=== PATIENT | female | born 1940 | race Caucasian/White ===

== ENCOUNTER 2019-07-15 06:40 | Inpatient (IN) | payer SELFPAY ==
[~2019-07-15] VITALS: Ht 160 cm; Wt 52.6 kg
--- NOTE | 2019-07-15 06:50 | NUR ---
assumed care of pt
[2019-07-15] MEDS ORDERED: SODIUM CHLORIDE 0.9% 1000ML 1,000 ML IV SCH (07:15)
[2019-07-15] MEDS ORDERED: SODIUM CHLORIDE 0.9% 100 ML ONE (07:18)
[2019-07-15] MEDS ORDERED: IOPAMIDOL 370 MG/ML 200 ML INFUS..BTL INJ ONE (07:18)
--- NOTE | 2019-07-15 08:10 | Diagnostic Imaging Report ---
EXAMINATION: CT of the abdomen and pelvis without contrast. TECHNIQUE: Spiral CT images of the abdomen and pelvis were performed from the lung bases to the lesser trochanters. No intravenous contrast was given per referring physician request. Coronal and sagittal reformatted images were obtained. COMPARISON: None. CLINICAL HISTORY:Right-sided abdominal pain DISCUSSION: ABSENCE OF INTRAVENOUS CONTRAST DECREASES SENSITIVITY FOR DETECTION OF FOCAL LESIONS AND VASCULAR PATHOLOGY. ABDOMEN/PELVIS: LOWER THORAX: 4 mm noncalcified nodule lateral aspect of the left lower lobe series 2 image 10. 4 mm juxtapleural nodule right middle lobe series 2 image 8. HEPATOBILIARY:Innumerable scattered subcentimeter hypoattenuating lesions throughout the liver, too small to further characterize but likely represent simple cysts. No intrahepatic biliary ductal dilatation. No radiopaque gallstones. SPLEEN: No splenomegaly. PANCREAS: No focal masses or ductal dilatation. ADRENALS: No adrenal nodules. KIDNEYS/URETERS: 4 mm nonobstructing left upper pole renal calculus. Punctate nonobstructing right lower pole renal calculus. No hydronephrosis. PELVIC ORGANS/BLADDER: Urinary bladder is poorly distended and poorly evaluated. PERITONEUM/RETROPERITONEUM: Trace perihepatic ascites, average attenuation 0-5 Hounsfield units. LYMPH NODES: No intra-abdominal,retroperitoneal, pelvic or inguinal lymphadenopathy. VESSELS: Limited evaluation without intravenous contrast. Atherosclerotic calcification of the abdominal aorta and iliac arterial systems without aneurysmal dilatation. GI TRACT: The large bowel shows no distention or wall thickening, though is largely collapsed and suboptimally evaluated. There are multiple mildly dilated loops of small bowel (approximately 3.5 cm in diameter), with a short segment of terminal ileum within a right femoral hernia. BONES AND SOFT TISSUES: The bones are diffusely osteopenic. Multilevel degenerative disc changes and facet arthropathy of the lumbar spine. No focal soft tissue abnormalities. IMPRESSION: Small bowel obstruction related to a right femoral hernia containing a loop of terminal ileum. Small amount of reactive perihepatic ascites. No pneumoperitoneum. Bilateral nonobstructing renal calculi. Atherosclerotic vascular disease. 4 mm right and left lower lobe pulmonary nodules may be assessed for stability by CT scan of the chest without contrast in one year if the patient is at high risk of malignancy. Findings were discussed by telephone with Dr. Melendez of the [facility] emergency center at 8:05 AM 07/15/2019. Signed by: Dr. Yandel Vargas M.D. on 07/15/2019 8:07 AM
[2019-07-15] MEDS ORDERED: CEFTRIAXONE SOD 1 GM VIAL IV ONE (08:30)
[2019-07-15] MEDS ORDERED: CEFTRIAXONE SOD 1 GM/NS 50 ML 50 ML IV ONE (08:36)
--- NOTE | 2019-07-15 10:10 | NUR ---
[facility] to transport pt to surgery for surgery of strangulated hernia
--- NOTE | 2019-07-15 10:10 | NUR ---
Report to Tiff in surgical services.
--- NOTE | 2019-07-15 10:20 | Pre Op History & Physical ---
CHIEF COMPLAINT: Right groin mass. HISTORY OF PRESENT ILLNESS: The patient is a pleasant 79-year-old female who this Friday felt ill. She thought it was the flu. She vomited once. The patient then persisted with some of these generalized symptoms until this morning when she became constipated and noticed also a lump in her right groin, which was tender. The patient then came to the emergency room at [facility]. She was then worked up and had a CT scan of the abdomen and pelvis that revealed an incarcerated right femoral hernia with a segment of distal small bowel. This also corresponded to her physical examination. PAST MEDICAL HISTORY: Unremarkable. PAST SURGICAL HISTORY: She had appendectomy years ago through a midline incision. Otherwise, no other surgeries. MEDICATIONS: She does not take any medicines. SOCIAL HISTORY: She does not smoke. She does not drink. She works at [employer]. FAMILY HISTORY: Noncontributory. REVIEW OF SYSTEMS: Significant only for what has been stated. This patient has never been sick in the past, except for the appendectomy many years ago. PHYSICAL EXAMINATION: GENERAL: A pleasant, anxious 79-year-old female, who is at this point in no acute distress. HEAD, EYES, EARS, NOSE, AND THROAT: No acute process. LUNGS: Supple. No carotid bruits. HEART: Regular sinus rhythm. No murmurs. LUNGS: Clear. ABDOMEN: Some guarding. No rebound. The right groin, there is a mass with some slight erythema of the overlying skin consistent with CT scan findings. Examination of the flanks reveals no tenderness. EXTREMITIES: No clubbing, cyanosis, or edema. NEUROLOGICAL: Nonfocal. ADMISSION LABS: Electrolytes and CBC were normal. Admission EKG did not reveal any acute process as per the emergency room physician. The CT scan has been discussed. ASSESSMENT: Strangulated right femoral hernia. PLAN: Plan is to proceed with emergent exploration of right groin, possible bowel resection, and possible laparotomy. The procedure, indication, benefits, and risks have been discussed with the patient. She is aware of the need for surgery and potential complications. She understands the emergency nature of the situation. I have called her son, who lives in [place] and left a message. The emergency room staff had contacted the patient's employer as per her request. MD ELOY Nick/MAYO /[id number] MTDEllis
[2019-07-15] MEDS ORDERED: HYDROGEN PEROXIDE 120 ML BTL ONE (12:28)
[2019-07-15] MEDS ORDERED: HYDROMORPHONE 2MG/ML 2 MG/ML ML ONE (13:38)
--- NOTE | 2019-07-15 14:06 | Operative Report ---
DATE OF PROCEDURE: 07/15/2019 SURGEON: Ambrosio Miller MD PREOPERATIVE DIAGNOSIS: Strangulated right femoral hernia. POSTOPERATIVE DIAGNOSIS: Strangulated right femoral hernia. PROCEDURES PERFORMED: Exploration of the right groin with reduction of necrotic small bowel and small bowel resection with primary [id number] functional end-to-end anastomosis, stapled, and Emory ligament repair, modified strangulated right inguinal hernia. INTRAOPERATIVE FINDINGS: The patient is a 79-year-old female, who has been having pain since Friday. She initially developed nausea and vomited and felt ill. She felt this was secondary to a viral illness. However, today she noticed a lump in the right groin, which scared her. The pain got worse and then she was evaluated in the outlying emergency room, was found to have incarcerated right femoral hernia. Intraoperative findings were strangulated right femoral hernia, Olson's type. [id number] functional end-to-end anastomosis was made and a modified Emory ligament repair was then performed. No mesh was placed due to the fact that we were dealing with gangrenous necrotic bowel with a contaminated field. Preoperatively, I attempted to contact her son and I could not find him, had left a message. DESCRIPTION OF PROCEDURE: With the patient lying on the operative table in the supine position after administration of general anesthesia, she was prepped and draped for repair of strangulated right inguinal hernia. An incision was made across the palpable mass in the right groin and deepened through the skin, subcutaneous tissue until the hernia was identified. We then dissected the hernia from the soft tissues. It became obvious that it was strangulated and not reducible. At this point, we then incised the transversalis fascia. At this point, we incised the external oblique aponeurosis. We entered the inguinal canal floor. We then at this point released the hernia from its incarceration, which require transecting the external inguinal ring, where the hernia also appeared to have been present. After we did that, then we had a knuckle of small bowel that was gangrenous within the hernia sac, which was excised. At this point, we went ahead and transected the small bowel proximal and distal to the knuckle of bowel with the ADINA #75 stapler and then, we performed a mehi-be-xwss functional end-to-end anastomosis by firing the ADINA #75 staplers that we had cut the corners of the bowel for the anastomosis. There was no bleeding. The bowel was totally viable at the two anastomosed ends and then we closed the defect in the bowel by firing the TA-60 stapler. We then reinforced the suture staple line with 3-0 silk interrupted and then closed the mesenteric defect with 2-0 Vicryl. At this point, we copiously irrigated the operative field. We irrigated the abdominal cavity within the area of the hernia and then, we performed the modified Emory ligament repair by then first relaxing the rectus sheath due to the fact that this was a large defect and it was under tension and we could not put a mesh, we rounded the conjoint tendon after relaxing the rectus sheath to the Emory ligament. The point where we saw the femoral vessel, we placed a transition stitch, incorporated part of the femoral vein sheath and then continued the repair at a higher level, suturing the rectus sheath to the ilioinguinal ligament. We then rounded the suture line back to itself at the level of the pubic tubercle. We irrigated the wound. We then ran a second layer, which incorporated the previously placed double suture line by taking basically the external oblique aponeurosis and running that toward the inguinal ligament. At this point, we irrigated again and then we closed the soft tissues in two layers using the deep Ran's fascia to itself to create another layer and then the subcuticular plane was drawn using interrupted 2-0 Vicryl. The skin was then closed with 3-0 silk. Sterile dressing was applied. The patient tolerated the procedure well, was taken to recovery room in stable condition. MD ELOY Nick/MAYO /[id number]
[2019-07-15] MEDS ORDERED: HYDRALAZINE HCL 20 MG/ML VIAL ONE ×2 (14:12→17:59)
[2019-07-15] MEDS ORDERED: HYDROMORPHONE 1MG/1ML INJ IV PRN (14:15)
[2019-07-15] MEDS ORDERED: FENTANYL CITRATE/PF 100MCG/2 ML INJ ONE ×2 (14:40→18:46)
--- OUTSIDE RECORDS SUMMARY | 2019-07-15 15:34 | XMS REPORT ---
Author [facility] Address Unknown Phone Unavailable Care Team Providers Care Asphalt Worker Name Role Phone MARIAJOSE MELENDEZ Unavailable Unavailable Problems This patient has no known problems. Allergies, Adverse Reactions, Alerts This patient has no known allergies or adverse reactions. Medications This patient has no known medications. Results Test Description Test Time Test Comments Text Results Atomic Results Result Comments CT ABD/PEL WO CONTRAST-HOPD 2019-07-15 07:54:[address] [address] Patient Name: RENETTA CONDON MR #: [id number] : 1940 Age/Sex: 79/F Req #: [id number] [facility] Physician: Ordered by: MARIAJOSE MELENDEZ MD Report #: [id number] Location: [facility] Room/Bed: Procedure: HOPD/CT ABD/PEL WO CONTRAST-HOPD Exam Date: 07/15/19 Exam Time: 0751 REPORT STATUS: Signed EXAMINATION: CT of the abdomen and pelvis without contrast. TECHNIQUE: Spiral CT images of the abdomen and pelvis were performed from the lung bases to the lesser trochanters. No intravenous contrast was given per referring physician request. Coronal and sagittal reformatted images were obtained. COMPARISON: None. CLINICAL HISTORY:Right-sided abdominal pain DISCUSSION: ABSENCE OF INTRAVENOUS CONTRAST DECREASES SENSITIVITY FOR DETECTION OF FOCAL LESIONS AND VASCULAR PATHOLOGY. ABDOMEN/PELVIS: LOWER THORAX: 4 mm noncalcified nodule lateral aspect of the left lower lobe series 2 image 10. 4 mm juxtapleural nodule right middle lobe series 2 image 8. HEPATOBILIARY:Innumerable scattered subcentimeter hypoattenuating lesions throughout the liver, too small to further characterize but likely represent simple cysts. No intrahepatic biliary ductal dilatation. No radiopaque gallstones. SPLEEN: No splenomegaly. PANCREAS: No focal masses or ductal dilatation. ADRENALS: No adrenal nodules. KIDNEYS/URETERS: 4 mm nonobstructing left upper pole renal calculus. Punctate nonobstructing right lower pole renal calculus. No hydronephrosis. PELVIC ORGANS/BLADDER: Urinary bladder is poorly distended and poorly evaluated. PERITONEUM/RETROPERITONEUM: Trace perihepatic ascites, average attenuation 0-5 Hounsfield units. LYMPH NODES: No intra-abdominal,retroperitoneal, pelvic or inguinal lymphadenopathy. VESSELS: Limited evaluation without intravenous contrast. Atherosclerotic calcification of the abdominal aorta and iliac arterial systems without aneury smal dilatation. GI TRACT: The large bowel shows no distention or wall thickening, though is largely collapsed and suboptimally evaluated. There are multiple mildly dilated loops of small bowel (approximately 3.5 cm in diameter), with a short segment of terminal ileum within a right femoral hernia. BONES AND SOFT TISSUES: The bones are diffusely osteopenic. Multilevel degenerative disc changes and facet arthropathy of the lumbar spine. No focal soft tissue abnormalities. IMPRESSION: Small bowel obstruction related to a right femoral hernia containing a loop of terminal ileum. Small amount of reactive perihepatic ascites. No pneumoperitoneum. Bilateral nonobstructing renal calculi. Atherosclerotic vascular disease. 4 mm right and left lower lobe pulmonary nodules may be assessed for stability by CT scan of the chest without contrast in one year if the patient is at high risk of malignancy. Findings were discussed by telephone with Dr. Melendez of the [facility] emergency center at 8:05 AM 07/15/2019. Signed by: Dr. Jocelin Roblero M.D. on 07/15/2019 8:07 AM Dictated By: JOCELIN ROBLERO MD 6 Transcribed By: NIGEL on 07/15/19806 COPY TO: MARIAJOSE MELENDEZ MD
[2019-07-15] MEDS ORDERED: MORPHINE SULFATE INJ 4 MG/ML INJ 1ML ONE (15:35)
--- NOTE | 2019-07-15 16:21 | NUR ---
PT TO THE FLOOR AT THIS TIME. PT'S VITALS WNL. PT RESTING. PT DENIES NEEDS AT THIS TIME.
[2019-07-15 16:34] VITALS: BP 151/69
[2019-07-15] MEDS: PANTOPRAZOLE 40 MG 10ML VIAL IV SCH (16:59)
[2019-07-15] MEDS: SODIUM CHLORIDE 0.9% 250ML IRRIG IR SCH ×3 (16:59→22:15)
[2019-07-15] MEDS: DEXTROSE 5%/LACTATED RINGERS 1,000 ML IV SCH (16:59)
[2019-07-15] MEDS ORDERED: ROCURONIUM BROMIDE 10 MG/ML 5ML VIAL ONE (17:59)
[2019-07-15] MEDS ORDERED: SEVOFLURANE INHAL SOLN 250 ML PEN BTL ONE (17:59)
[2019-07-15] MEDS ORDERED: NEOSTIGMINE 5 MG/5ML SYR ONE (17:59)
[2019-07-15] MEDS ORDERED: LIDOCAINE HCL 2% LOCAL INJ 5 ML SDV VIAL INJ ONE (17:59)
[2019-07-15] MEDS ORDERED: DEXAMETHASONE SOD PHOS INJ 4 MG/ML VIAL ONE (17:59)
[2019-07-15] MEDS ORDERED: ONDANSETRON HCL INJ 2MG/ML 2ML 2 MG/ML VIAL ONE (17:59)
[2019-07-15] MEDS ORDERED: PROPOFOL IV EMULSION 10 MG/ML 20 ML VIAL ONE (17:59)
[2019-07-15] MEDS ORDERED: GLYCOPYRROLATE INJ 1MG/ 5 ML SYR ONE (17:59)
[2019-07-15] MEDS: CEFOXITIN 1GM/ D5W 50ML 50 ML IV SCH (18:39)
[2019-07-15] MEDS ORDERED: MIDAZOLAM HCL 2 MG/2 ML VIAL ONE (18:46)
[2019-07-15 19:26] VITALS: BP 151/69
[2019-07-15] MEDS ORDERED: [UNRECOGNIZED DRUG - REMARK] (19:40)
[2019-07-15 20:19] VITALS: BP 176/81
[2019-07-15 20:35] VITALS: BP 176/81
[2019-07-15] MEDS: HYDROMORPHONE 1MG/1ML INJ IV PRN (21:54)
[2019-07-16] VITALS (8 sets, daily range): BP systolic 137–182; BP diastolic 69–87
[2019-07-16] MEDS: DEXTROSE 5%/LACTATED RINGERS 1,000 ML IV SCH ×3 (00:02→20:02)
[2019-07-16] MEDS: CEFOXITIN 1GM/ D5W 50ML 50 ML IV SCH ×5 (00:08→23:14)
[2019-07-16] MEDS: HYDROMORPHONE 1MG/1ML INJ IV PRN ×5 (01:15→20:25)
[2019-07-16] MEDS: SODIUM CHLORIDE 0.9% 250ML IRRIG IR SCH ×6 (02:15→20:25)
--- NOTE | 2019-07-16 04:04 | NUR ---
ALTERNATING PRESSURE APPLIED TO MATTRESS
[2019-07-16] MEDS: ONDANSETRON HCL INJ 2MG/ML 2ML 2 MG/ML VIAL IV PRN ×4 (06:00→20:25)
[2019-07-16 06:34] LABS: BASOPHILS % 0.2 % (0.0-1.0); EOSINOPHILS # (AUTO) 0.1 (0.0-0.4); EOSINOPHILS % 1.9 % (0.0-6.0); HEMATOCRIT 37.2 % (34.2-44.1); HEMOGLOBIN 11.9 g/dL (12.0-16.0); LYMPHOCYTES # (AUTO) 0.3 (1.0-3.2); LYMPHOCYTES % 4.7 % (18.0-39.1); MEAN CORPUSCULAR VOLUME 84.4 fL (81-99); MONOCYTES # (AUTO) 0.6 (0.2-0.8); MONOCYTES % 9.5 % (4.4-11.3); NEUTROPHILS # (AUTO) 5.4 (2.1-6.9); NEUTROPHILS % 83.4 % (38.7-80.0); PLATELET COUNT 182 x10e3/uL (140-360); RED BLOOD COUNT 4.41 x10e6/uL (3.6-5.1); RED CELL DISTRIBUTION WIDTH 14.4 % (11.7-14.4)
--- NOTE | 2019-07-16 07:00 | NUR ---
BEDSIDE SHIFT REPORT RECEIVED FROM [facility] [employer] [facility] RN. PT DENIES NEEDS AT THIS TIME.
[2019-07-16 07:02] LABS: ANION GAP 13.3 mmol/L (8-16); CALCIUM 8.8 mg/dL (8.4-10.2); CREATININE, SERUM 1.14 mg/dL (0.57-1.11); POTASSIUM 3.3 mmol/L (3.5-5.1)
[2019-07-16 09:48] LABS: EOSINOPHILS % (MANUAL) 1 % (0-7); LYMPHOCYTES % (MANUAL) 4 % (19-48); MONOCYTES % (MANUAL) 11 % (3.4-9.0); NEUTROPHILS % (MANUAL) 84 % (40-74); PLATELET ESTIMATE MODERATELY DECREASED; PLATELET MORPHOLOGY COMMENT FEW LARGE
[2019-07-16 09:49] LABS: RBC MORPHOLOGY COMMENT NORMAL
[2019-07-16] MEDS ORDERED: POTASSIUM CHLORIDE 20MEQ/100ML 100 ML IV ONE (10:30)
--- NOTE | 2019-07-16 12:53 | Progress Note ---
DATE: SUBJECTIVE: The patient complains mainly of pain in the left arm. She has no complaints of abdominal pain at this time or nausea. OBJECTIVE: VITAL SIGNS: Temperature is 99.7, blood pressure 176/81, pulse 87, respirations 16, and oxygen saturation 96%. GENERAL: She is awake and alert and appears tired. ABDOMEN: Reveals a flat abdomen, some bowel sounds. The dressing is dry. EXTREMITIES: Reveal no clubbing, cyanosis, or edema. LABORATORY DATA: Her electrolytes are normal except for potassium of 3.3. White count is 6.4, hematocrit 37, and platelets 182. Intake and output reveals 800 cc of urine, 100 cc of nasogastric drainage. The intake is 900, which equals the output. ASSESSMENT: Status post repair of strangulated right groin hernia with small bowel resection and stapled anastomosis. At this point, the patient is hemodynamically stable. PLAN: The plan is to continue present care. Hopefully, we can remove the NG tube tomorrow as well as the Mckeon catheter and start mobilizing the patient. MD ELOY Nick/MAYO /[id number]
[2019-07-16] MEDS: PANTOPRAZOLE 40 MG 10ML VIAL IV SCH (15:08)
[2019-07-17] VITALS (8 sets, daily range): BP systolic 174–189; BP diastolic 76–100
[2019-07-17] MEDS: HYDROMORPHONE 1MG/1ML INJ IV PRN ×3 (00:10→23:00)
[2019-07-17] MEDS: ONDANSETRON HCL INJ 2MG/ML 2ML 2 MG/ML VIAL IV PRN ×3 (00:10→22:54)
[2019-07-17] MEDS: SODIUM CHLORIDE 0.9% 250ML IRRIG IR SCH ×3 (02:56→10:00)
[2019-07-17] MEDS: DEXTROSE 5%/LACTATED RINGERS 1,000 ML IV SCH ×2 (04:10→19:10)
[2019-07-17] MEDS: CEFOXITIN 1GM/ D5W 50ML 50 ML IV SCH ×4 (05:35→23:18)
[2019-07-17 06:25] LABS: BASOPHILS % 0.2 % (0.0-1.0); EOSINOPHILS % 0.2 % (0.0-6.0); HEMATOCRIT 35.9 % (34.2-44.1); HEMOGLOBIN 11.3 g/dL (12.0-16.0); LYMPHOCYTES # (AUTO) 0.4 (1.0-3.2); MEAN CORPUSCULAR HEMOGLOBIN 27.2 pg (28-32); MEAN CORPUSCULAR HGB CONC 31.5 g/dL (31-35); MEAN CORPUSCULAR VOLUME 86.3 fL (81-99); MONOCYTES # (AUTO) 0.6 (0.2-0.8); MONOCYTES % 9.6 % (4.4-11.3); NEUTROPHILS # (AUTO) 5.2 (2.1-6.9); NEUTROPHILS % 83.7 % (38.7-80.0); PLATELET COUNT 175 x10e3/uL (140-360); RED BLOOD COUNT 4.16 x10e6/uL (3.6-5.1); RED CELL DISTRIBUTION WIDTH 14.4 % (11.7-14.4)
[2019-07-17 06:44] LABS: ANION GAP 11.1 mmol/L (8-16); CALCIUM 9.1 mg/dL (8.4-10.2); CREATININE, SERUM 0.91 mg/dL (0.57-1.11); POTASSIUM 4.1 mmol/L (3.5-5.1)
[2019-07-17 07:04] LABS: BAND NEUTROPHILS % (MANUAL) 1 %; LYMPHOCYTES % (MANUAL) 8 % (19-48); MONOCYTES % (MANUAL) 6 % (3.4-9.0); NEUTROPHILS % (MANUAL) 84 % (40-74)
[2019-07-17 07:05] LABS: PLATELET ESTIMATE ADEQUATE; PLATELET MORPHOLOGY COMMENT NORMAL; RBC MORPHOLOGY COMMENT NORMAL
--- NOTE | 2019-07-17 10:00 | NUR ---
PT REPOSITIONED TO LEFT SIDE, NGT IRRIGATED PER MD ORDER, PT TOLERATED WELL, PT NOW TALKING ON PHONE, CALL LIGHT WITHIN REACH
--- NOTE | 2019-07-17 11:23 | NUR ---
MD Chris JAIME INTO SEE PT, DISCUSSED POC
[2019-07-17] MEDS: ACETAMINOPHEN 1000 MG/100 ML IV PRN ×2 (12:40→21:22)
--- NOTE | 2019-07-17 12:45 | NUR ---
REMOVED JAIN PER MD ORDER, 400ML YELLOW URINE DRAINED, NGT REMOVED PER MD ORDER, PT TOLERATED WELL, CALL LIGHT WITHIN REACH
--- NOTE | 2019-07-17 13:15 | NUR ---
MD Chris JAIME IN HOSPITAL, MADE AWARE OF ELEVATED BP, WILL RECHECK INSTRUCTED AND NOTIFY MD JAIME IF STILL ELEVATED
--- NOTE | 2019-07-17 15:00 | NUR ---
SITTING IN BS CHAIR, CALL LIGHT WITHIN REACH
--- NOTE | 2019-07-17 15:16 | NUR ---
TELEPHONED MD Chris JAIME TO MAKE AWARE THAT PT BP IS STILL ELEVATED, 187/89, 91 BPM AT 1427, AFTER PHYSICAL THERAPY BP ELEVATED TO 210/95, HR 82 BPM, CURRENTLY 185/88, HR 79BPM, ORDERS NOTED
[2019-07-17] MEDS: PANTOPRAZOLE 40 MG 10ML VIAL IV SCH (15:33)
--- NOTE | 2019-07-17 16:16 | NUR ---
PT ASSISTED BACK TO BED AFTER SITTING IN BS CHAIR, CALL LIGHT WITHIN REACH, SPOKE WITH MD HANDLEY, AWARE OF CONSULT
--- NOTE | 2019-07-17 17:15 | NUR ---
SPOKE WITH PT PER REQUEST, PT WORRIED ABOUT BILL, SHE STATES IS SUPPOSED TO BE ON HER SONS JOSE BUT WAS INFORMED SHE IS NOT. SHE IS AFRAID SHE WILL NOT BE TREATED. I EDUCATED HER THAT [facility] WOULD BRING HER A DANIAL APPLICATION AND ALSO PRICE FROM [facility] WOULD COME SEE HER ON FRIDAY TO SEE IF SHE WOULD BE ABLE TO ASSIST PT IN ANY WAY, GAVE PACKET OF RESOURCES FOR COMMUNITY TO FOLLOW UP UPON DISCHARGE. LET HER KNOW SHE WILL BE TREATED SAME AT THIS HOSPITAL REGARDLESS OF BENEFITS AND WILL DO WHAT WE CAN TO ASSIST HER.
--- NOTE | 2019-07-17 17:19 | NUR ---
CALLED SON TO GET CLARIFICATION ABOUT BEING ON HIS BENEFITS, ROBBY [phone] LEFT MESSAGE TO RETURN CALL.
[2019-07-17] MEDS: AMLODIPINE BESYLATE 10 MG TAB PO SCH (17:30)
--- NOTE | 2019-07-17 18:11 | NUR ---
PER PCT PT VOIDED , MD HANDLEY INTO SEE PT, DISCUSSED POC
[2019-07-17] MEDS: HYDRALAZINE HCL 20 MG/ML VIAL IV SCH ×2 (18:45→23:18)
--- NOTE | 2019-07-17 19:02 | NUR ---
WALKING ROUNDS PERFORMED, RECEIVED PT LAYING SEMI FOWLERS IN BED, AAOX3, RR EVEN AND NON-LABORED, ON ROOM AIR. NO S/SX OF DISTRESS NOTED. Addendum: 07/17/19 at 1948 by Leslie Orlando RN LEFT PT LAYING SEMI FOWLERS IN BED, BED IN LOW LOCKED POSITION, SIDE RAILS UPX2, CALL LIGHT AND PHONE WITHIN REACH.
[2019-07-18] VITALS (8 sets, daily range): BP systolic 132–209; BP diastolic 62–96
--- NOTE | 2019-07-18 00:30 | Consultation ---
DATE OF CONSULTATION: HISTORY OF PRESENT ILLNESS: This is a 79-year-old woman, who underwent an operation for necrotic small bowel within the inguinal hernia. Postoperatively, she became profoundly hypertensive. She is completely asymptomatic from a cardiovascular standpoint. Denies any chest pain, shortness of breath, palpitations, near syncope, orthopnea, PND, or prior cardiovascular events. The patient's blood pressure was ranging from 170s to 180s and she is under mild distress secondary to surgical site pain. REVIEW OF SYSTEMS: A 12-point review of system was conducted, is negative otherwise as stated above in the HPI. PAST MEDICAL HISTORY: No significant medical history. PAST SURGICAL HISTORY: Appendectomy and hernia repair. ALLERGIES: NO KNOWN DRUG ALLERGIES. MEDICATIONS: See medications reconciliation form. SOCIAL HISTORY: No illicit drug, alcohol, or tobacco use. PHYSICAL EXAMINATION: VITAL SIGNS: Temperature is 96, heart rate is 87, respirations are 18, blood pressure is 177/84, and oxygen saturation 95% on room air. GENERAL: Well-appearing elderly woman, lying comfortably in bed. HEENT: Head is normocephalic and atraumatic. Eyes, the extraocular muscles are intact. Conjunctivae are clear. NECK: No JVD. No bruits. CARDIOVASCULAR: Regular rate and rhythm. LUNGS: Clear to auscultation bilaterally. No wheezing or rales. ABDOMEN: Soft, nontender, and nondistended. EXTREMITIES: No clubbing, cyanosis, or edema. VASCULAR: 2+ pulses. SKIN: Warm, dry, and intact. NEUROLOGIC: No focal deficits noted. Cranial nerves grossly intact. PSYCHIATRIC: Normal mood and affect. LABORATORY DATA: Reviewed. Creatinine was mildly elevated yesterday at 1.14 and today is 0.9. IMPRESSION: 1. Hypertension. 2. Strangulated bowel, status post reduction. 3. Hernia repair. RECOMMENDATIONS: The patient is currently asymptomatic from a cardiovascular standpoint. We will start amlodipine for blood pressure control. If needed, can start an angiotensin receptor carlos a. No need for additional cardiac testing. We will continue to follow along with you. Nathaniel Wylie DO BM/MODL /[id number]
[2019-07-18] MEDS: DEXTROSE 5%/LACTATED RINGERS 1,000 ML IV SCH ×2 (03:06→21:53)
[2019-07-18] MEDS: HYDRALAZINE HCL 20 MG/ML VIAL IV SCH ×3 (05:56→16:29)
[2019-07-18] MEDS: CEFOXITIN 1GM/ D5W 50ML 50 ML IV SCH ×2 (05:56→12:35)
[2019-07-18 06:47] LABS: BASOPHILS % 0.4 % (0.0-1.0); EOSINOPHILS % 0.3 % (0.0-6.0); HEMATOCRIT 35.9 % (34.2-44.1); HEMOGLOBIN 11.8 g/dL (12.0-16.0); LYMPHOCYTES # (AUTO) 0.5 (1.0-3.2); LYMPHOCYTES % 6.2 % (18.0-39.1); MEAN CORPUSCULAR HEMOGLOBIN 27.6 pg (28-32); MEAN CORPUSCULAR HGB CONC 32.9 g/dL (31-35); MEAN CORPUSCULAR VOLUME 83.9 fL (81-99); MONOCYTES # (AUTO) 0.5 (0.2-0.8); MONOCYTES % 6.4 % (4.4-11.3); NEUTROPHILS # (AUTO) 6.2 (2.1-6.9); NEUTROPHILS % 86.3 % (38.7-80.0); PLATELET COUNT 171 x10e3/uL (140-360); RED BLOOD COUNT 4.28 x10e6/uL (3.6-5.1); RED CELL DISTRIBUTION WIDTH 14.2 % (11.7-14.4)
[2019-07-18 07:07] LABS: ANION GAP 12.4 mmol/L (8-16); BLOOD UREA NITROGEN 19 mg/dL (7-26); BUN/CREATININE RATIO 23 (6-25); CARBON DIOXIDE 26 mmol/L (22-29); CHLORIDE 106 mmol/L (98-107); CREATININE, SERUM 0.83 mg/dL (0.57-1.11); EST GLOMERULAR FILTRATION RATE > 60 ML/MIN (60-); GLUCOSE 111 mg/dL (74-118); POTASSIUM 3.4 mmol/L (3.5-5.1); SODIUM 141 mmol/L (136-145)
[2019-07-18] MEDS: AMLODIPINE BESYLATE 10 MG TAB PO SCH (08:45)
[2019-07-18] MEDS: ONDANSETRON HCL INJ 2MG/ML 2ML 2 MG/ML VIAL IV PRN ×2 (09:08→14:40)
[2019-07-18] MEDS: ACETAMINOPHEN 1000 MG/100 ML IV PRN (09:10)
--- NOTE | 2019-07-18 09:12 | NUR ---
RECHECKED TEMP AFTER REMOVING 2 BLANKETS, PT TEMP NOW 96.7F ORAL, PT C/O "BACK AND STOMACH" PAIN NOW, C/O NAUSEA, MEDICATED PER MD ORDER FOR NAUSEA AND PAIN,
--- NOTE | 2019-07-18 09:35 | NUR ---
PT RESTING WITH EYES CLOSED, RR EVEN AND NONLABORED, CALL LIGHT WITHIN REACH
--- NOTE | 2019-07-18 10:43 | NUR ---
MD Chris JAIME INTO SEE PT, PT NOW COMPLAINING OF "BURNING IN HER STOMACH, AND FEEL SICK", MD DISCUSSED POC
[2019-07-18] MEDS ORDERED: BISACODYL 10 MG SUPP PR ONE ×2 (11:00→23:00)
--- NOTE | 2019-07-18 12:00 | NUR ---
PT REFUSING SUPPOSITORY AT THIS TIME, STATES WILL TAKE "LATER", WITH STANDBY ASSIST, OOB TO BS COMMODE, PCT AT SIDE
--- NOTE | 2019-07-18 12:53 | Progress Note ---
DATE: Cardiology Progress Note SUBJECTIVE: The patient reports nausea and mild pain at the groin site. OBJECTIVE: VITAL SIGNS: Temperature is 96.7, heart rate is 84, respirations are 19, blood pressure is 160/72, and oxygen saturation is 96% on room air. GENERAL: Well-appearing elderly woman, lying comfortably in bed. CARDIOVASCULAR: Regular rate and rhythm. LUNGS: Clear to auscultation. ABDOMEN: Soft, nontender, nondistended. EXTREMITIES: No clubbing, cyanosis, or edema. VASCULAR: 2+ pulses. LABORATORY DATA: Reviewed. Hemoglobin 11.8, creatinine 0.83. IMPRESSION: 1. Hypertension. 2. Strangulated bowel, status post reduction. 3. Hernia repair. 4. Nausea. RECOMMENDATION: She remains asymptomatic from a cardiovascular standpoint. She cannot tolerate hydralazine due to nausea. Clear liquids have been started and we will continue amlodipine orally for blood pressure control. If needed, can start angiotensin receptor carlos a as her creatinine has normalized. Nathaniel Wylie DO BM/MODL /[id number]
[2019-07-18] MEDS: PANTOPRAZOLE 40 MG 10ML VIAL IV SCH (13:57)
--- NOTE | 2019-07-18 14:12 | NUR ---
PT ENCOURAGED TO GET OOB , PT VERBALIZED UNDERSTANDING YET REFUSES AT THIS TIME, SUPPOSITORY GIVEN AT THIS TIME, PT TOLERATING ICE CHIPS, ENCOURAGED SIPS OF WATER, PT REFUSING AT THIS TIME, CALL LIGHT WITHIN REACH
[2019-07-18] MEDS ORDERED: ACETAMINOPHEN 1000 MG/100 ML 100 ML IV ONE (14:41)
[2019-07-18] MEDS ORDERED: ACETAMINOPHEN 1000 MG/100 ML IV PRN (14:45)
--- NOTE | 2019-07-18 16:31 | NUR ---
PT REFUSING TO GET OOB AT THIS TIME, BP ELEVATED, PT REFUSING TO TAKE PO MEDICATION ORDERED BY MD HANDLEY, IV HYDRALAZINE ADMINISTERED AT THIS TIME,PT ENCOURAGED TO GET OOB, PT REFUSING, BLADDER SCANNED, 0ML NOTED, SPOKE WITH MD Chris JAIME, MADE AWARE OF PT C/O PAIN AND NAUSEA ,AND NOT GETTING OOB, ORDERS NOTED
--- NOTE | 2019-07-18 17:36 | Diagnostic Imaging Report ---
RADIOGRAPH(S) OF THE ABDOMEN AND PELVIS, 3 view(s) HISTORY: Straightening of the right femoral hernia, pain, nausea COMPARISON: None available. FINDINGS: Blunting of the left costophrenic angle. Minimal left basilar atelectasis. Numerous loops of nondilated gaseous distended small bowel and colon. No definite urinary tract calcification. The bones are partially obscured by stool and overlying bowel gas. Diffusely decreased mineralization of the osseous structures limits bone detail. IMPRESSION: 1. Nonobstructive bowel gas pattern. 2. Numerous loops of gaseous distended small bowel and colon. 3. Trace left pleural effusion with adjacent atelectasis. Signed by: Dr. Indra Regalado D.O., M.M.M. on 07/18/2019 5:33 PM
--- NOTE | 2019-07-18 17:40 | NUR ---
MD Chris JAIME INTO SEE PT, MADE AWARE PT HAD SMALL BM, NOW SITTING IN BS CHAIR, ORDERS NOTED
[2019-07-18] MEDS ORDERED: HYDROCODONE/APAP 5MG-325MG TAB PO PRN (17:45)
[2019-07-18] MEDS ORDERED: CITRATE OF MAGNESIA 300ML BOTTLE PO ONE (18:45)
--- NOTE | 2019-07-18 19:02 | NUR ---
WALKING ROUNDS PERFORMED, RECEIVED PT LAYING FOWLERS IN BED, RESTING, 16 RR/MIN, RR EVEN AND NON-LABORED, ON ROOM AIR. NO S/SX OF DISTRESS NOTED. LEFT PT LAYING FOWLERS IN BED, BED IN LOW LOCKED POSITION, SIDE RAILS UPX2, CALL LIGHT AND PHONE WITHIN REACH.
[2019-07-19] VITALS (9 sets, daily range): BP systolic 131–186; BP diastolic 61–83
[2019-07-19] MEDS: METOCLOPRAMIDE HCL 10 MG/2ML VIAL IV SCH ×4 (00:16→17:40)
[2019-07-19] MEDS: HYDRALAZINE HCL 20 MG/ML VIAL IV SCH ×4 (00:16→17:40)
--- NOTE | 2019-07-19 02:52 | NUR ---
IV TO (R) AC NOTED TO BE LEAKING. IV DISCONTINUED, CATHETER TIP INTACT. PRESSURE AND DRESSING APPLIED X2 ATTEMPTS TO (L) FA WITH 20G ATTEMPTED. BOTH UNSUCCESSFUL. CHARGE NURSE NOTIFIED AND WILL ATTEMPT.
--- NOTE | 2019-07-19 03:14 | NUR ---
NEW IV STARTED TO (L) HAND BY Kenan MOSHER GROCERY TEAM MEMBER NURSE. X1 ATTEMPT
--- NOTE | 2019-07-19 07:15 | NUR ---
Received patient lying in bed with eyes open. Respiration even and unlabored without SOB. Call light in reach.
[2019-07-19] MEDS: AMLODIPINE BESYLATE 10 MG TAB PO SCH (08:52)
[2019-07-19] MEDS: DEXTROSE 5%/LACTATED RINGERS 1,000 ML IV SCH (11:08)
[2019-07-19] MEDS: PANTOPRAZOLE 40 MG 10ML VIAL IV SCH (13:32)
[2019-07-19] MEDS: LISINOPRIL 2.5 MG TAB PO SCH (17:39)
--- NOTE | 2019-07-19 18:58 | NUR ---
Report given to milieu technician. Patient lying in bed with eyes open. Respiration even and unlabored without SOB. Call light in reach. Denies pain at this time.
[2019-07-20] VITALS (7 sets, daily range): BP systolic 137–173; BP diastolic 63–81
[2019-07-20] MEDS: HYDRALAZINE HCL 20 MG/ML VIAL IV SCH ×5 (00:12→18:00)
[2019-07-20] MEDS: DEXTROSE 5%/LACTATED RINGERS 1,000 ML IV SCH (02:46)
--- NOTE | 2019-07-20 04:08 | Progress Note ---
DATE: 07/19/2019 Cardiology Progress Note SUBJECTIVE: The patient denies chest pain or shortness of breath. OBJECTIVE: VITAL SIGNS: Temperature 98.5 degrees, pulse 98, respiratory rate 17, blood pressure 135/72, oxygen saturation 96%. GENERAL: Awake and alert, in no acute distress. LUNGS: Clear to auscultation bilaterally. No wheezes or crackles. CARDIOVASCULAR: Normal rate and regular rhythm. No murmur. ABDOMEN: Soft, nontender. EXTREMITIES: No edema. CARDIAC MEDICATIONS: Hydralazine 10 mg IV q.6 hours, lisinopril 5 mg p.o. b.i.d., amlodipine 10 mg p.o. daily. LABORATORY DATA: None today. IMPRESSION: 1. Hypertension. 2. Strangulated bowel, status post reduction. 3. Hernia repair. 4. Nausea. RECOMMENDATIONS: The patient's blood pressure has improved with re-initiation of oral antihypertensive therapy. Continue current cardiac medications. The patient is stable from a cardiovascular standpoint. Thank you for this consult. We will continue to follow. Blank Aceves MD ABS/MODL /[id number]
--- NOTE | 2019-07-20 07:00 | NUR ---
BEDSIDE SHIFT REPORT RECEIVED FROM CO FOUNDER AND CHAIRMAN RN. PT DENIES NEEDS AT THIS TIME.
[2019-07-20] MEDS: AMLODIPINE BESYLATE 10 MG TAB PO SCH (08:22)
[2019-07-20] MEDS: LISINOPRIL 2.5 MG TAB PO SCH (08:23)
[2019-07-20] MEDS: APIXABAN 5 MG TABLET PO SCH ×2 (12:14→18:12)
[2019-07-20 12:49] LABS: BLOOD UREA NITROGEN 14 mg/dL (7-26); BUN/CREATININE RATIO 23 (6-25); CALCIUM 8.8 mg/dL (8.4-10.2); CARBON DIOXIDE 26 mmol/L (22-29); CHLORIDE 101 mmol/L (98-107); CREATININE, SERUM 0.61 mg/dL (0.57-1.11); EST GLOMERULAR FILTRATION RATE > 60 ML/MIN (60-); GLUCOSE 96 mg/dL (74-118); SODIUM 136 mmol/L (136-145)
--- NOTE | 2019-07-20 14:00 | NUR ---
DOPPLER ORDERED BY DR. DYE SHOWED PT POSITIVE FOR RLE DVT. THIS WAS ALSO DISCUSSED WITH DR. TOLLIVER AND DR. ORTIZ. DR. DYE ORDERED ELIQUIS 10 MG PO BID. SHE STATED SHE WOULD BE BY TO WRITE A PRESCRIPTION.
--- NOTE | 2019-07-20 14:16 | Progress Note ---
DATE: 07/20/2019 Cardiology Progress Note SUBJECTIVE: The patient denies chest pain or shortness of breath. OBJECTIVE: VITAL SIGNS: Temperature 99.2 degrees, pulse 79, respiratory rate 17, blood pressure 165/79, and oxygen saturation 96% on nasal cannula. GENERAL: Awake, alert, in no acute distress. LUNGS: Clear to auscultation bilaterally. No wheezes or crackles. CARDIOVASCULAR: Normal rate. Regular rhythm. No murmur. ABDOMEN: Soft and nontender. EXTREMITIES: 1+ pitting edema on the right lower extremity. No edema on the left. CARDIAC MEDICATIONS: 1. Lisinopril 5 mg p.o. b.i.d. 2. Amlodipine 10 mg p.o. daily. LABORATORY DATA: Pending. IMPRESSION: 1. Hypertension. 2. Right lower extremity swelling. 3. Strangulated bowel, status post reduction. 4. Hernia repair. 5. Nausea. RECOMMENDATIONS: Stat right lower extremity venous Doppler to evaluate for DVT. Given recent surgery. If found to be positive, she will need to be started on anticoagulation, provided this is agreeable with General Surgery. The patient's blood pressure remains elevated. Increase lisinopril. Continue current cardiac medications otherwise. PT as tolerated. Thank you for this consult. We will continue to follow. Blank Aceves MD ABS/MODL /[id number]
[2019-07-20] MEDS: PANTOPRAZOLE 40 MG 10ML VIAL IV SCH (14:50)
[2019-07-20] MEDS: LISINOPRIL 10 MG TAB PO SCH (18:12)
[2019-07-21] VITALS: BP 143/80
[2019-07-21 04:00] VITALS: BP 146/72
[2019-07-21] MEDS: HYDRALAZINE HCL 20 MG/ML VIAL IV SCH ×3 (05:22→12:00)
--- NOTE | 2019-07-21 07:01 | NUR ---
received report from shift lab technician RN, pt in stable condition, will continue to assess.
[2019-07-21 09:05] VITALS: BP 146/72
[2019-07-21 09:26] VITALS: BP 160/73
[2019-07-21] MEDS: APIXABAN 5 MG TABLET PO SCH (10:28)
[2019-07-21] MEDS: AMLODIPINE BESYLATE 10 MG TAB PO SCH (10:28)
[2019-07-21] MEDS: LISINOPRIL 10 MG TAB PO SCH (10:29)
[2019-07-21 12:16] LABS: ANION GAP 12.1 mmol/L (8-16); BLOOD UREA NITROGEN 20 mg/dL (7-26); BUN/CREATININE RATIO 31 (6-25); CALCIUM 8.8 mg/dL (8.4-10.2); CARBON DIOXIDE 26 mmol/L (22-29); CHLORIDE 104 mmol/L (98-107); CREATININE, SERUM 0.65 mg/dL (0.57-1.11); EST GLOMERULAR FILTRATION RATE > 60 ML/MIN (60-); GLUCOSE 98 mg/dL (74-118); POTASSIUM 3.1 mmol/L (3.5-5.1); SODIUM 139 mmol/L (136-145)
[2019-07-21 12:44] VITALS: BP 140/72
--- NOTE | 2019-07-21 13:10 | Discharge Summary ---
DISCHARGE DIAGNOSES: 1. Strangulated right femoral hernia. 2. Hypertension. 3. Deep vein thrombosis. PROCEDURES PERFORMED DURING THIS HOSPITALIZATION: Exploratory laparotomy, small bowel resection with stapled [id number] anastomosis and repair of right femoral hernia by Dr. Ambrosio Miller. CONSULTATIONS: 1. Blank Aceves M.D., Cardiology. 2. Red Thakur M.D., Internal Medicine. HISTORY: The patient is a 79-year-old female admitted to the hospital from the emergency room with a strangulated right femoral hernia. She had presented with abdominal pain initially for several days, then localized to the right lower quadrant, where she noticed a bulge there. The patient on admission had a CT scan that revealed a strangulated right femoral hernia with bowel obstruction. HOSPITALIZATION COURSE: The patient was taken immediately to the operating room and underwent the previously described procedure and the previously described postoperative course. The patient [id number] and she had difficulties moving. The patient developed hypertension. Cardiology was consulted as well as Internal Medicine. She also developed swelling of the right leg and was found to have DVT by ultrasound. The patient's diet was advanced to regular, which she was tolerating well. The patient was discharged home on 07/21/2019 with disposition home. She was started on Eliquis by Cardiology for her DVT, which was also sent home with. She was also discharged home on lisinopril and Norvasc for her blood pressure. This will be followed up by Internal Medicine. The patient was given detailed and careful instruction. She has no work tolerance. She is not supposed to lift more than 5 pounds if at all. She clearly understood that because of the emergency of the situation and the contaminated field, that I was unable to put a mesh at the time of surgery, and she set up for hernia recurrence. She understands and agreed to follow my instructions, will be seen in my office on Friday following discharge to remove sutures. MD ELOY Nick/MAYO /[id number]
[2019-07-21] MEDS ORDERED: ULTRAM50 MG PO (13:52)
[2019-07-21] MEDS ORDERED: AMLODIPINE BESYL5 MG PO (13:53)
[2019-07-21] MEDS ORDERED: LISINOPRIL10 MG PO (13:53)
[2019-07-21] MEDS ORDERED: eliquis PO (13:54)
== END 2019-07-21 14:33 | disposition home or self-care (01) | DRG 330 ==
LOC: FSED 06:40 → PACU V 14:06 → MED/SURG 16:09
PROVIDERS: ADMIT Surgery; ATTEND Surgery
PROC: 0DB80ZZ Excision of Small Intestine, Open Approach (ICD-10-PCS; 2019-07-15)
PROC: 0YQ70ZZ Repair Right Femoral Region, Open Approach (ICD-10-PCS; principal; 2019-07-15 10:54)
DX: K41.30 Unilateral femoral hernia, with obstruction, without gangrene, not specified as recurrent (principal); I82.411 Acute embolism and thrombosis of right femoral vein; K29.70 Gastritis, unspecified, without bleeding; K81.1 Chronic cholecystitis; I10 Essential (primary) hypertension; R60.0 Localized edema
CPT/HCPCS: 36415; 74022; 74176; 80048; 80053; 81003; 82553; 84484; 85025; 88302; 93005; 93971; 97139; 99284; J0360; J0696; J1100; J1170; J2001; J2250; J2270; J2405; J2765; J3010; J3480; J7030; J7050; Q9967